=== PATIENT | female | born 1975 | race Caucasian/White ===

== ENCOUNTER 2018-12-16 11:47 | Emergency (ER) | payer BC ==
[~2018-12-16] VITALS: Ht 170.2 cm; Wt 94.3 kg
--- NOTE | 2018-12-16 12:35 | PHYS DOC ---
Past History Past Medical History: Hypothyroid Past Surgical History: Tonsillectomy, Tubal ligation Alcohol Use: Occasionally Drug Use: None Adult General Chief Complaint Chief Complaint: NEURO SYMPTOMS/DEFICITS HPI HPI Patient is a 43 year old female who presents with left sided weakness. The weakness began around 11:00pm last night. She states it began with ringing in her R. ear, nausea, dizziness, and left sided leg weakness. Her co-workers at this time stated that her speech seemed slurred. Her symptoms resolved over the course of 10 minutes. This morning the patient states that her symptoms returned. She feels dizzy, weak, and reports left arm heaviness. Review of Systems Review of Systems Constitutional: Denies fever or chills [] Eyes: Denies change in visual acuity, redness, or eye pain [] GI: Denies abdominal pain, nausea, vomiting, bloody stools or diarrhea [] : Denies dysuria or hematuria [] Musculoskeletal: Denies back pain or joint pain [] Integument: Denies rash or skin lesions [] All other systems were reviewed and found to be within normal limits, except as documented in this note. Allergies Allergies Allergies Coded Allergies Type Severity Reaction Last Updated Verified No Known Drug Allergies 12/16/18 No Physical Exam Physical Exam Constitutional: Well developed, well nourished, no acute distress, non-toxic appearance. [] HENT: Normocephalic, atraumatic, bilateral external ears normal, oropharynx moist, no oral exudates, nose normal. [] Eyes: PERRLA, EOMI, conjunctiva normal, no discharge. [] Neck: Normal range of motion, no tenderness, supple, no stridor. [] Cardiovascular:Heart rate regular rhythm, no murmur [] Lungs & Thorax: Bilateral breath sounds clear to auscultation [] Abdomen: Bowel sounds normal, soft, no tenderness, no masses, no pulsatile masses. [] Extremities: No tenderness, no cyanosis, no clubbing, ROM intact, no edema. [] Neurologic: Alert and oriented X 3, normal sensory function, mild dysmetria on the left, mild pronator drift on the left. [] Psychologic: Affect normal, judgement normal, mood ANXIOUS AND TEARFUL Current Patient Data Vital Signs Vital Signs Date Time Temp Pulse Resp B/P (MAP) Pulse Ox O2 Delivery O2 Flow Rate FiO2 12/16/18 12:09 98.1 66 18 99 Room Air EKG EKG [] Radiology/Procedures Radiology/Procedures CT of the head without contrast, 12/16/2018: HISTORY: Left-sided weakness/numbness beginning 12 hours ago The ventricles are within normal limits in size. There is no shift of the midline structures. There is no evidence of acute intracranial hemorrhage or mass effect. IMPRESSION: No acute intracranial abnormality is detected. PQRS Compliance Statement: One or more of the following individualized dose reduction techniques were utilized for this examination: 1. Automated exposure control 2. Adjustment of the mA and/or kV according to patient size 3. Use of iterative reconstruction technique Electronically signed by: Les Huff MD (12/16/2018 1:12 PM) [facility] DICTATED AND SIGNED BY: LES HUFF MD DATE: 12/16/18 1312 CC: SALVADOR ALONSO MD; PCP,NO ~ [] CTA of the head and neck with contrast, 12/16/2018: HISTORY: Left-sided weakness, slurred speech Multidetector CT imaging was performed following an IV bolus injection of iodinated contrast material. Multiplanar reconstructions were produced including MIP images and 3-D volume rendered reconstructions. The common carotid arteries are unremarkable. There is no significant atherosclerotic plaquing at either carotid bifurcation. The internal carotid arteries are widely patent bilaterally up through the level of the [place]. There is no evidence of aneurysm. The anterior cerebral and middle cerebral arteries and their major branches are unremarkable. Both vertebral arteries in the neck are widely patent with dominance of the left vertebral artery. The right vertebral artery ends in cerebellar branches with the basilar artery being supplied by the left vertebral artery. This is a normal variant. The basilar artery is unremarkable. The posterior cerebral arteries show no abnormality. There appear to be patent posterior communicating arteries bilaterally. IMPRESSION: 1. No significant atherosclerotic disease is identified at either carotid bifurcation. 2. No major intracranial arterial occlusion or stenosis is identified. PQRS Compliance Statement: One or more of the following individualized dose reduction techniques were utilized for this examination: 1. Automated exposure control 2. Adjustment of the mA and/or kV according to patient size 3. Use of iterative reconstruction technique Electronically signed by: Les Huff MD (12/16/2018 1:50 PM) [facility] DICTATED AND SIGNED BY: LES HUFF MD DATE: 12/16/18 9082 CC: SALVADOR ALONSO MD; PCP,NO ~ Course & Med Decision Making Course & Med Decision Making Pertinent Labs and Imaging studies reviewed. (See chart for details) []43-year-old female with complaint initially of some slurred speech last night followed by a heaviness of the arm and now some subtle neurologic findings and she also has a headache differential would include migraine although she does not carry that diagnosis. Given the subtle but objective neurologic findings I think transfer for an MRI would be reasonable I spoke with Dr. BYRD AT [facility] PT 230 PM. I had considered the diagnosis of a neck dissection given her complaints but CT CT angios was negative acute patient is currently overall still feeling some mild ARM heaviness but doing stable EKG shows a normal sinus rhythm rate of 65 no acute ischemic changes noted interpreted by me the time of encounter Dragon Disclaimer Dragon Disclaimer This electronic medical record was generated, in whole or in part, using a voice recognition dictation system. Departure Departure: Impression: Primary Impression: Left arm weakness Disposition: XFER SHT-TRM HOSP Condition: STABLE NIHSS - ED NIH Stroke Scale: NIH Stroke Scale Response (Comments) Value Level of Consciousness: 0 Alert/Responsive 0 LOC Questions: 0 Answers both correctly 0 LOC Commands: 0 Performs both tasks 0 Best Gaze: 0 Normal 0 Visual: 0 No visual loss 0 Facial Palsy: 0 Normal, symmetrical 0 Motor - Left Arm 1 Drifts, but can hold 1 Motor - Right Arm 0 No drift 0 Motor - Left Leg 0 No drift 0 Motor: Right Leg 0 No drift 0 Limb Ataxia: 1 One limb 1 Sensory: 0 No loss 0 Best Language: 0 Normal 0 Dysathria: 0 Normal 0 Extinction and Inattention: 0 Normal 0 Total 2 SALVADOR ALONSO MD December 16, 2018 12:35
[2018-12-16 12:51] LABS: BASO % 1 % (0-3); EOS # 0.2 x10^3/uL (0.0-0.7); EOS % 3 % (0-3); HEMATOCRIT 35.5 % (36.0-47.0); HEMOGLOBIN 11.4 g/dL (12.0-15.5); LYMPH # 1.3 x10^3/uL (1.0-4.8); LYMPH % 25 % (24-48); MEAN CORPUSCULAR HEMOGLOBIN 24 pg (25-35); MEAN CORPUSCULAR HGB CONC 32 g/dL (31-37); MEAN CORPUSCULAR VOLUME 75 fL (79-100); MONO # 0.5 x10^3/uL (0.0-1.1); MONO % 10 % (0-9); NEUT # 3.2 x10^3uL (1.8-7.7); NEUT % 61 % (31-73); PLATELET COUNT 279 x10^3/uL (140-400); RED BLOOD COUNT 4.75 x10^6/uL (3.50-5.40); RED CELL DISTRIBUTION WIDTH 16.5 % (11.5-14.5); WHITE BLOOD COUNT 5.3 x10^3/uL (4.0-11.0)
[2018-12-16] MEDS ORDERED: IOHEXOL 350 MG/ML 100 ML VIAL. IV ONE (13:00)
[2018-12-16 13:04] LABS: ALBUMIN 3.4 g/dL (3.4-5.0); ALBUMIN/GLOBULIN RATIO 0.8 (1.0-1.7); CALCIUM 9.2 mg/dL (8.5-10.1); CREATININE 0.8 mg/dL (0.6-1.0); GFR 77.6; POTASSIUM 4.2 mmol/L (3.5-5.1); TOTAL BILIRUBIN 0.3 mg/dL (0.2-1.0); TOTAL PROTEIN 7.6 g/dL (6.4-8.2)
[2018-12-16] MEDS: IOHEXOL 350 MG/ML 100 ML VIAL. IV ONE (13:12)
--- NOTE | 2018-12-16 13:15 | RAD ---
CT of the head without contrast, 12/16/2018: HISTORY: Left-sided weakness/numbness beginning 12 hours ago The ventricles are within normal limits in size. There is no shift of the midline structures. There is no evidence of acute intracranial hemorrhage or mass effect. IMPRESSION: No acute intracranial abnormality is detected. RS Compliance Statement: One or more of the following individualized dose reduction techniques were utilized for this examination: 1. Automated exposure control 2. Adjustment of the mA and/or kV according to patient size 3. Use of iterative reconstruction technique Electronically signed by: Les Huff MD (12/16/2018 1:12 PM) [facility]
[2018-12-16 13:23] LABS: BACTERIA,URINE FEW /HPF (0-FEW); BILIRUBIN,URINE NEG (NEG); CLARITY,URINE HAZY; COLOR,URINE PINK; GLUCOSE,URINE NEG (NEG); NITRITE,URINE NEG (NEG); RBC,URINE >40 /HPF (0-2); SQUAMOUS EPITHELIAL CELL,UR FEW /LPF; UROBILINOGEN,URINE 0.2 mg/dL (0.2 mg/dL); WBC,URINE OCC /HPF (0-4)
[2018-12-16 13:29] LABS: BARBITURATES NEG (NEG); BENZODIAZEPINES NEG (NEG); CANNABINOIDS NEG (NEG); COCAINE NEG (NEG); METHADONE NEG (NEG); OPIATES NEG (NEG); PHENCYCLIDINE NEG (NEG)
[2018-12-16 13:30] LABS: AMPHETAMINE/METHAMPHETAMINE NEG (NEG)
--- NOTE | 2018-12-16 13:53 | RAD ---
CTA of the head and neck with contrast, 12/16/2018: HISTORY: Left-sided weakness, slurred speech Multidetector CT imaging was performed following an IV bolus injection of iodinated contrast material. Multiplanar reconstructions were produced including MIP images and 3-D volume rendered reconstructions. The common carotid arteries are unremarkable. There is no significant atherosclerotic plaquing at either carotid bifurcation. The internal carotid arteries are widely patent bilaterally up through the level of the [place]. There is no evidence of aneurysm. The anterior cerebral and middle cerebral arteries and their major branches are unremarkable. Both vertebral arteries in the neck are widely patent with dominance of the left vertebral artery. The right vertebral artery ends in cerebellar branches with the basilar artery being supplied by the left vertebral artery. This is a normal variant. The basilar artery is unremarkable. The posterior cerebral arteries show no abnormality. There appear to be patent posterior communicating arteries bilaterally. IMPRESSION: 1. No significant atherosclerotic disease is identified at either carotid bifurcation. 2. No major intracranial arterial occlusion or stenosis is identified. PQRS Compliance Statement: One or more of the following individualized dose reduction techniques were utilized for this examination: 1. Automated exposure control 2. Adjustment of the mA and/or kV according to patient size 3. Use of iterative reconstruction technique Electronically signed by: Les Huff MD (12/16/2018 1:50 PM) [facility]
[2018-12-16 14:17] VITALS: BP 111/65
[2018-12-16] MEDS: ASPIRIN 81 MG TAB.CHEW PO ONE (14:42)
[2018-12-16] MEDS: ONDANSETRON PF 4 MG/2 ML VIAL. IV ONE (14:42)
--- NOTE | 2018-12-16 17:08 | EKG ---
[address] [address] Test Date: 2018-12-16 Test Time: 12:59:26 Pat Name: ISIDRA GEE Department: Room: Gender: F Military Analyst: YULISSA : 1975 Requested By: SALVADOR ALONSO Order Number: [id number] Reading MD: John Nunn MD Measurements Intervals [place] Rate: 65 P: 0 PA: 140 QRS: 59 QRSD: 90 T: 56 QT: 410 QTc: 427 Interpretive Statements SINUS RHYTHM Electronically Signed On 01-11-2019 9:28:45 CDT by John Nunn MD
== END 2018-12-16 15:19 | disposition short-term general hospital (02) ==
LOC: ER 12:19
DX: R53.1 Weakness (principal); R47.81 Slurred speech; R42 Dizziness and giddiness; H93.11 Tinnitus, right ear; R11.0 Nausea; E03.9 Hypothyroidism, unspecified
CPT/HCPCS: 36415; 70450; 70496; 70498; 80053; 80307; 81001; 81025; 84484; 85025; 93005; 96374; 99285; G0480; J2405; Q9967

== ENCOUNTER → 2020-07-24 | Outpatient (CLI) | payer BC ==
--- NOTE | 2020-07-24 09:57 | RAD ---
EXAM: Left hand, 2 views. HISTORY: Blunt trauma. COMPARISON: None. FINDINGS: 2 views of the left hand are obtained. There is no fracture, dislocation or subluxation. Th e alignment and joint spaces are unremarkable. IMPRESSION: No acute osseous finding. Electronically signed by: Laura Lacy MD (07/24/2020 9:54 AM) [id number]
== END ==
LOC: RAD 09:19
PROVIDERS: ATTEND Physician Assistant Medical
DX: M79.642 Pain in left hand (principal)
CPT/HCPCS: 73120